=== PATIENT | female | born 1980 | race Caucasian/White ===

== ENCOUNTER 2018-11-16 19:33 | Emergency (ER) | payer OTHER ==
[~2018-11-16] VITALS: Ht 165.1 cm; Wt 144.2 kg
[~2018-11-16 19:33] MED LIST: ALDACTONE25 MG PO; AMOXICILLIN500 M1 PO; CORTISPORIN OTI10 M2 OTIC; DELTASONE20 MG PO; FLEXERIL PO; IBUPROFEN 800800 M1 PO; LEVAQUIN 500 M500 M6 PO; LIDOCAINE VISC100 M1 PO; METFORMIN HCL500 MG PO; TRAMADOL 50 MG50 MG PO; ZANTAC 150MG T150 MG PO
[2018-11-16] MEDS ORDERED: AMOXICILLIN 50500 MG PO (19:54)
[2018-11-16] MEDS ORDERED: WELLBUTRIN SR150 MG PO (19:55)
[2018-11-16] MEDS ORDERED: METFORMIN HCL500 MG PO (19:55)
[2018-11-16] MEDS ORDERED: ALDACTONE100 MG PO (19:55)
[2018-11-16 20:31] LABS: HEMOGLOBIN 16.6 gm/dL (12.0-15.0); MCH 26.8 pg (26.0-34.0); MCHC 33.2 g/dL (28.0-37.0); MCV 80.6 fL (80.0-100.0); MPV 6.9 fl. (7.2-11.1); NUCLEATED RBCS 0 /100WBC; PLATELET COUNT* 462 thou/uL (150-400); RDW-CV 14.4 % (10.5-14.5); WBC 23.7 thou/uL (4.0-11.0)
[2018-11-16 20:46] LABS: CALCIUM 9.1 mg/dL (8.5-10.1); MAGNESIUM 1.9 mg/dL (1.8-2.4); POTASSIUM 3.7 mmol/L (3.5-5.1)
[2018-11-16 20:54] LABS: URINE BLOOD NEGATIVE (Negative); URINE CLARITY CLOUDY; URINE COLOR YELLOW; URINE GLUCOSE-RANDOM NEGATIVE (Negative); URINE KETONES TRACE (Negative); URINE LEUKOCYTES-REFLEX NEGATIVE (Negative); URINE NITRITE-REFLEX NEGATIVE (Negative); URINE PROTEIN TRACE (Negative); URINE SPECIFIC GRAVITY >= 1.030 (1.005-1.030); URINE UROBILINOGEN 0.2 E.U./dl (0.2-1.0)
[2018-11-16 20:57] LABS: ICTOTEST (BILI CONFIRMATORY) Negative (Negative); URINE BILIRUBIN 1+ (Negative)
[2018-11-16 21:05] LABS: BACTERIA-REFLEX 1-9 Few /HPF (None Seen); MUCUS 0-3 Light strn/LPF (None Seen); SQUAMOUS >10 Many /LPF (0-3)
[2018-11-16 21:06] LABS: AMORPHOUS URATES Moderate /LPF (None Seen); HYALINE CASTS 0-3 Few /LPF (None Seen); URINE RBC None Seen /HPF (0-2)
[2018-11-16 21:07] LABS: URINE WBC-REFLEX None Seen /HPF (0-5)
[2018-11-16 21:10] LABS: ABSOLUTE LYMPHOCYTES 3.8 thou/uL (0.8-5.3); ABSOLUTE MONOCYTES 0.7 thou/uL (0.0-1.2); ABSOLUTE NEUTROPHILS 19.2 thou/uL (1.6-8.1)
[2018-11-16 21:12] LABS: CLUMPED PLTS RARE; PLATELET ESTIMATE ADEQUATE
[2018-11-16] MEDS ORDERED: ZOFRAN ODT4 MG PO (23:04)
[2018-11-16] MEDS ORDERED: LEVAQUIN 500 M500 M3 PO (23:04)
[2018-11-16 23:43] VITALS: BP 119/77
== END 2018-11-16 23:40 | disposition home or self-care (01) ==
LOC: M.ERS 19:33
PROVIDERS: Nurse Practitioner Psychiatric/Mental Health
DX: D72.829 Elevated white blood cell count, unspecified (principal); R11.2 Nausea with vomiting, unspecified; R19.7 Diarrhea, unspecified; F17.210 Nicotine dependence, cigarettes, uncomplicated; E28.2 Polycystic ovarian syndrome; Z88.5 Allergy status to narcotic agent; Z90.49 Acquired absence of other specified parts of digestive tract; Z87.09 Personal history of other diseases of the respiratory system